=== PATIENT | female | born 1965 | race Caucasian/White ===

== ENCOUNTER → 2019-09-01 | Outpatient (CLI) | payer OTHER ==
--- NOTE | 2019-09-01 14:09 | Diagnostic Imaging Report ---
EXAMINATION: MRI of the cervical spine without contrast HISTORY: Neck pain radiating to the shoulders and right upper extremity with numbness and weakness COMPARISON: Cervical spine MRI of 03/28/2017 TECHNIQUE: Sagittal T1, T2, STIR; axial T2, gradient echo. FINDINGS: Postoperative changes: Status post ACDF with solid interbody fusion from C5 to C7. Curvature: Straightening of the cervical lordosis which may be related to prior surgery and positional. Minimal degenerative anterolistheses of C3 on C4 and C4 on C5, grossly unchanged. Vertebrae: No evidence of neoplasm, infection, or fracture. Foramen magnum: No mass, Chiari malformation, or basilar invagination. Spinal Cord: Normal size and signal intensity. Soft Tissues: Unremarkable. Degenerative changes: C1-C2: Unremarkable. C2-C3: Facet arthropathy mainly on the right side without canal or foraminal stenosis. C3-C4: Minimal disc bulge, prominent facet arthrosis bilaterally. Persistent degenerative bilateral facet synovitis. Moderate foraminal stenosis worse on the left. Displacement of the exiting C4 nerve roots cannot totally be excluded. C4-C5: Uncovertebral and facet arthrosis mainly of the right. Moderate right foraminal stenoses. Displacement of the exiting right C5 nerve root cannot totally be excluded. C5-C6: Surgical level without stenoses C6-C7: Surgical level without stenoses C7-T1: Mild bilateral facet arthrosis without stenosis IMPRESSION: 1. Solid interbody fusion from C5 to C7. 2. Moderate degenerative foraminal stenosis mainly on the left at C3-C4. 3. Moderate degenerative foraminal stenosis on the right at C4-C5. 4. 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 Signed by: Dr. Nayeli Carter M.D. on 09/01/2019 2:07 PM
== END ==
LOC: MRI 05:00
PROVIDERS: ATTEND Student in an Organized Health Care Education/Training Program
DX: M54.12 Radiculopathy, cervical region (principal)
CPT/HCPCS: 72141

== ENCOUNTER → 2020-01-22 | Outpatient (CLI) | payer OTHER ==
--- NOTE | 2020-01-23 08:18 | Diagnostic Imaging Report ---
EXAM: US ABDOMEN COMPLETE DATE: 01/22/2020 4:25 PM INDICATION: Bloating, swelling COMPARISON: None TECHNIQUE: Transverse and longitudinal camacho scale and color doppler sonographic images of the upper abdomen were obtained. FINDINGS: LIVER 16.8 cm in the right midclavicular line. Increased echogenicity of the liver with normal contour, no masses. SPLEEN 8.3 cm in maximum diameter. Normal echogenicity, no masses. GALLBLADDER No gallbladder wall thickening, distension, stone, or pericholecystic fluid. Negative reported sonographic Easley's sign. The gallbladder wall measures 2mm BILE DUCTS No intra nor extra-hepatic biliary dilation. Common bile duct measures 3mm PANCREAS: Visualized portions are normal. RIGHT KIDNEY: 10.4 cm Echogenicity: Normal Collecting System: No hydronephrosis Stones: None Cyst/Mass: None LEFT KIDNEY: 10.8 cm Echogenicity: Normal Collecting System: No hydronephrosis Stones: None Cyst/Mass: None VESSELS: Aorta: Visualized portions are within normal size limits Inferior Vena Cava: Visualized portions are normal Main Portal Vein: 0.8 cm, normal size with hepatopetal flow. FREE FLUID: None No visible hernia in the umbilical region as per clinical concern. IMPRESSION: Hepatic steatosis. No cholelithiasis or sonographic evidence of cholecystitis. Signed by: Nadir Chambers MD on 01/23/2020 8:15 AM
== END ==
LOC: US 16:11
PROVIDERS: ATTEND Family Medicine
DX: R14.0 Abdominal distension (gaseous) (principal)
CPT/HCPCS: 76700

== ENCOUNTER → 2020-08-09 | Outpatient (CLI) | payer OTHER | LOC: RAD 13:37 | PROVIDERS: ATTEND Student in an Organized Health Care Education/Training Program | DX: M54.16 Radiculopathy, lumbar region (principal); M25.511 Pain in right shoulder | CPT/HCPCS: 72052; 72110 ==

== ENCOUNTER → 2020-12-10 | Outpatient (CLI) | payer OTHER | LOC: RAD 16:43 | PROVIDERS: ATTEND Family Medicine | DX: J18.9 Pneumonia, unspecified organism (principal) | CPT/HCPCS: 71046 ==

== ENCOUNTER → 2022-11-16 | Day surgery (SDC) | payer OTHER ==
[~2022-11-16] MED LIST: BYSTOLIC10 MG PO; FENTANYL CITRATE/PF 100MCG/2 ML INJ ONE; LACTATED RINGER'S 1,000 ML ONE; LIDOCAINE HCL 2% LOCAL INJ 5 ML SDV VIAL INJ ONE; METOCLOPRAMIDE HCL 10 MG/2ML VIAL ONE; MIDAZOLAM HCL 2 MG/2 ML VIAL ONE; ONDANSETRON HCL INJ 2MG/ML 2ML 2 MG/ML VIAL ONE; PROPOFOL IV EMULSION 10 MG/ML 20 ML VIAL ONE; PROPOFOL IV EMULSION 50 ML IV ONE; [UNRECOGNIZED DRUG - CODE] PO
[2022-11-16 15:05] VITALS: BP 125/78
[2022-11-21 07:18] LABS: ENDOMYSIAL ANTIBODIES, IGA Negative (Negative)
== END | disposition home or self-care (01) ==
LOC: OR 10:13
PROVIDERS: ATTEND Internal Medicine Gastroenterology
DX: K51.50 Left sided colitis without complications (principal); D12.2 Benign neoplasm of ascending colon; D12.5 Benign neoplasm of sigmoid colon; D12.8 Benign neoplasm of rectum; K29.70 Gastritis, unspecified, without bleeding; K29.80 Duodenitis without bleeding; K20.90 Esophagitis, unspecified without bleeding; K57.30 Diverticulosis of large intestine without perforation or abscess without bleeding; K62.89 Other specified diseases of anus and rectum; C52 Malignant neoplasm of vagina; I10 Essential (primary) hypertension; B02.9 Zoster without complications; Z79.899 Other long term (current) drug therapy
CPT/HCPCS: 43239; 45380; 45385; 82784; 83516; 83630; 83993; 86140; 86256 ×2; 86671; 87045; 87177; 87324; 87328; 87449; 93005; C9113; J2001; J2250; J2405; J2704 ×2; J2765; J3010; J7121; 45378

== ENCOUNTER → 2023-01-17 | Outpatient (CLI) | payer OTHER ==
[~2023-01-17] MED LIST changes: -FENTANYL CITRATE/PF 100MCG/2 ML INJ ONE; -LACTATED RINGER'S 1,000 ML ONE; -LIDOCAINE HCL 2% LOCAL INJ 5 ML SDV VIAL INJ ONE; -METOCLOPRAMIDE HCL 10 MG/2ML VIAL ONE; -MIDAZOLAM HCL 2 MG/2 ML VIAL ONE; -ONDANSETRON HCL INJ 2MG/ML 2ML 2 MG/ML VIAL ONE; -PROPOFOL IV EMULSION 10 MG/ML 20 ML VIAL ONE; -PROPOFOL IV EMULSION 50 ML IV ONE
== END ==
LOC: MRI 13:49
PROVIDERS: ATTEND Psychiatry & Neurology Clinical Neurophysiology
DX: M54.81 Occipital neuralgia (principal); G44.52 New daily persistent headache (NDPH)
CPT/HCPCS: 70551; 72141